=== PATIENT | male | born 1975 ===

== ENCOUNTER 2024-02-13 06:32 | Outpatient (REF) | payer OTHER, SELFPAY ==
--- NOTE | ~2024-02-13 | US_ITS ---
EXAMINATION: US EXTREMITY NONVASCULAR LIMITED, RIGHT CLINICAL INFORMATION: Right lower leg lump. Anterior distal thomas. COMPARISON: None available. TECHNIQUE: Grayscale, Doppler, and cine images were obtained of the right lower leg in the region of the patient's complaint. FINDINGS: Within the subcutaneous tissues, there is a complex fluid collection measuring 4.4 x 2.5 x 2.7 cm without Doppler detectable vascular flow. There are areas of internal hyperechogenicity and hypoechogenicity. No adjacent inflammatory change. Findings are nonspecific and could represent a chronic, evolving hematoma. An abscess is thought less likely. A more aggressive soft tissue lesion is also thought less likely given the lack of Doppler detectable vascular flow or invasion of adjacent structures. Mild adjacent subcutaneous edema. US/US extremity nonvascular ziegler IMPRESSION: Complex fluid collection within the subcutaneous tissues measuring up to 4.4 cm without Doppler detectable vascular flow. Findings are nonspecific and could represent a chronic, evolving hematoma. An abscess or aggressive soft tissue lesion are thought less likely given the lack of Doppler detectable vascular flow or invasion of adjacent structures. Electronically signed by: Noam Colbert MD 02/14/2024 10:07 AM SHOAIB GRANADOS
== END 2024-02-13 06:33 | disposition home or self-care (01) ==
LOC: HO.UMASIMG 06:32
PROVIDERS: Visit Provider Physician Assistant
DX: R22.41 Localized swelling, mass and lump, right lower limb (principal)
CPT/HCPCS: 76882